=== PATIENT | male | born 1985 | race African-American/Black ===

== ENCOUNTER 2023-02-19 01:12 | Inpatient (IN) | payer BC ==
[2023-02-19 02:20] VITALS: BMI 26.9
[2023-02-19] MEDS ORDERED: BISMUTH SUBSALICYLATE 262 MG/15 ML BTL PO PRN (04:50)
[2023-02-19] MEDS ORDERED: BENZOCAINE/MENTHOL (CHLORASEPTIC ) LOZENGE MM PRN (04:50)
[2023-02-19] MEDS ORDERED: IBUPROFEN 400 MG TABLET (FP) PO PRN (04:50)
[2023-02-19] MEDS ORDERED: MAGNESIUM HYDROX 2400MG/30ML ORAL SUSPENSION 30 ML CUP PO PRN (04:50)
[2023-02-19] MEDS ORDERED: BENZONATATE 200 MG CAPSULE PO PRN (04:50)
[2023-02-19] MEDS ORDERED: POLYETHYLENE GLYCOL (HEALTHYLAX) 3350 17 GM PACKET PO PRN (04:50)
[2023-02-19] MEDS ORDERED: NALOXONE HCL (KLOXXADO) 8 MG SPRAY NS PRN (04:50)
[2023-02-19] MEDS ORDERED: guaiFENesin 600 MG TABLET.ER (FP) PO PRN (04:50)
[2023-02-19] MEDS ORDERED: NALOXONE HCL 0.4 MG/ML VIAL IM PRN (04:50)
[2023-02-19] MEDS ORDERED: LOPERAMIDE HCL 2 MG CAPSULE PO PRN (04:50)
[2023-02-19] MEDS ORDERED: ONDANSETRON *ODT* 4 MG TABLET SL PRN (04:50)
[2023-02-19] MEDS ORDERED: ACETAMINOPHEN 325 MG TABLET (FP) PO PRN (04:50)
[2023-02-19] MEDS ORDERED: PRENATAL VITAMINS W/ FOLIC ACID TABLET (FP) PO ONE (09:06)
[2023-02-19] MEDS: PRENATAL VITAMINS W/ FOLIC ACID TABLET (FP) PO SCH (09:25)
[2023-02-19] MEDS: ABACAVIR/DOLUTEGRAVIR/LAMIVUDI (TRIUMEQ) TABLET PO SCH (11:00)
[2023-02-19] MEDS: MELATONIN 5 MG TABLETS PO SCH (22:40)
[2023-02-19] MEDS: THIAMINE HCL 100 MG TABLET (FP) PO SCH (22:40)
[2023-02-20] MEDS: PRENATAL VITAMINS W/ FOLIC ACID TABLET (FP) PO SCH (10:30)
[2023-02-20] MEDS: ABACAVIR/DOLUTEGRAVIR/LAMIVUDI (TRIUMEQ) TABLET PO SCH (10:31)
[2023-02-20 10:39] LABS: POTASSIUM 3.9 mmol/L (3.5-5.1)
[2023-02-20 10:42] LABS: CALCIUM 9.1 mg/dL (8.5-10.1)
[2023-02-20 10:43] LABS: ALBUMIN 3.6 g/dl (3.4-5.0); BLOOD UREA NITROGEN 7.8 mg/dL (7-18)
[2023-02-20 10:46] LABS: CREATININE 1.1 mg/dL (0.55-1.3)
[2023-02-20 10:47] LABS: BILIRUBIN,TOTAL 0.8 mg/dL (0.2-1)
[2023-02-20 10:48] LABS: TOT PROT 7.9 g/dl (6.4-8.2)
[2023-02-20 10:52] LABS: HEMATOCRIT 42.5 % (35.4-49); HEMOGLOBIN 14.1 GM/dL (11.7-16.9); MCH 30.3 pg (25.7-33.7); MCHC 33.2 g/dl (32.0-35.9); MEAN CELL VOLUME 91.4 fl (80-96); MEAN PLT VOLUME 8.8 fl (7.5-11.1); PLATELET COUNT 357 10^3/uL (134-434); RBC 4.65 M/mm3 (4.00-5.60); RDW 15.5 % (11.9-15.9); WHITE BLOOD COUNT 5.3 K/mm3 (4.0-10.0)
[2023-02-20] MEDS: THIAMINE HCL 100 MG TABLET (FP) PO SCH (23:30)
[2023-02-20] MEDS: MELATONIN 5 MG TABLETS PO SCH (23:30)
[2023-02-21] MEDS: IBUPROFEN 600 MG TABLET (FP) PO PRN (06:56)
[2023-02-21] MEDS: PRENATAL VITAMINS W/ FOLIC ACID TABLET (FP) PO SCH (10:03)
[2023-02-21] MEDS: ABACAVIR/DOLUTEGRAVIR/LAMIVUDI (TRIUMEQ) TABLET PO SCH (10:03)
[2023-02-21] MEDS: THIAMINE HCL 100 MG TABLET (FP) PO SCH (21:46)
[2023-02-21] MEDS: MELATONIN 5 MG TABLETS PO SCH (21:46)
[2023-02-22] MEDS: IBUPROFEN 600 MG TABLET (FP) PO PRN ×2 (07:28→18:44)
[2023-02-22] MEDS: ABACAVIR/DOLUTEGRAVIR/LAMIVUDI (TRIUMEQ) TABLET PO SCH (09:39)
[2023-02-22] MEDS: PRENATAL VITAMINS W/ FOLIC ACID TABLET (FP) PO SCH (09:39)
[2023-02-22] MEDS: MELATONIN 5 MG TABLETS PO SCH (21:07)
[2023-02-22] MEDS: THIAMINE HCL 100 MG TABLET (FP) PO SCH (21:07)
[2023-02-23] MEDS: PRENATAL VITAMINS W/ FOLIC ACID TABLET (FP) PO SCH (11:09)
[2023-02-23] MEDS: ABACAVIR/DOLUTEGRAVIR/LAMIVUDI (TRIUMEQ) TABLET PO SCH (11:10)
[2023-02-23] MEDS: P-EPHED 60MG/TRIPROLIDI 2.5MG TABLET PO PRN (19:58)
[2023-02-23] MEDS: THIAMINE HCL 100 MG TABLET (FP) PO SCH (23:30)
[2023-02-23] MEDS: MELATONIN 5 MG TABLETS PO SCH (23:30)
[2023-02-24] MEDS: P-EPHED 60MG/TRIPROLIDI 2.5MG TABLET PO PRN ×2 (06:02→16:59)
[2023-02-24] MEDS: ABACAVIR/DOLUTEGRAVIR/LAMIVUDI (TRIUMEQ) TABLET PO SCH (10:12)
[2023-02-24] MEDS: PRENATAL VITAMINS W/ FOLIC ACID TABLET (FP) PO SCH (10:12)
[2023-02-24] MEDS: METHOCARBAMOL 500 MG TABLET PO PRN (19:05)
[2023-02-24] MEDS: IBUPROFEN 600 MG TABLET (FP) PO PRN (19:05)
[2023-02-24] MEDS: THIAMINE HCL 100 MG TABLET (FP) PO SCH (21:49)
[2023-02-24] MEDS: MELATONIN 5 MG TABLETS PO SCH (21:49)
[2023-02-25] MEDS: METHOCARBAMOL 500 MG TABLET PO PRN (01:05)
[2023-02-25] MEDS: hydrOXYzine PAMOATE 25 MG CAPSULE (FP) PO PRN (01:05)
[2023-02-25] MEDS: P-EPHED 60MG/TRIPROLIDI 2.5MG TABLET PO PRN ×2 (07:55→20:18)
[2023-02-25] MEDS: PRENATAL VITAMINS W/ FOLIC ACID TABLET (FP) PO SCH (09:48)
[2023-02-25] MEDS: ABACAVIR/DOLUTEGRAVIR/LAMIVUDI (TRIUMEQ) TABLET PO SCH (09:48)
[2023-02-25] MEDS: MAG HYDROX/AL HYDROX/SIMETH 30 ML UNIT-DOSE CUP PO PRN (17:28)
[2023-02-25] MEDS: IBUPROFEN 600 MG TABLET (FP) PO PRN (20:17)
[2023-02-25] MEDS: MELATONIN 5 MG TABLETS PO SCH (21:05)
[2023-02-25] MEDS: THIAMINE HCL 100 MG TABLET (FP) PO SCH (21:05)
[2023-02-26] MEDS: PRENATAL VITAMINS W/ FOLIC ACID TABLET (FP) PO SCH (10:31)
[2023-02-26] MEDS: ABACAVIR/DOLUTEGRAVIR/LAMIVUDI (TRIUMEQ) TABLET PO SCH (10:31)
[2023-02-26] MEDS: P-EPHED 60MG/TRIPROLIDI 2.5MG TABLET PO PRN ×2 (10:32→21:03)
[2023-02-26] MEDS: MAG HYDROX/AL HYDROX/SIMETH 30 ML UNIT-DOSE CUP PO PRN (16:24)
[2023-02-26] MEDS: MELATONIN 5 MG TABLETS PO SCH (21:03)
[2023-02-26] MEDS: THIAMINE HCL 100 MG TABLET (FP) PO SCH (21:04)
[2023-02-27] MEDS: IBUPROFEN 600 MG TABLET (FP) PO PRN (06:29)
[2023-02-27] MEDS: PRENATAL VITAMINS W/ FOLIC ACID TABLET (FP) PO SCH (09:56)
[2023-02-27] MEDS: ABACAVIR/DOLUTEGRAVIR/LAMIVUDI (TRIUMEQ) TABLET PO SCH (09:57)
[2023-02-27] MEDS: P-EPHED 60MG/TRIPROLIDI 2.5MG TABLET PO PRN (17:42)
[2023-02-27] MEDS: MELATONIN 5 MG TABLETS PO SCH (21:01)
[2023-02-27] MEDS: THIAMINE HCL 100 MG TABLET (FP) PO SCH (21:01)
[2023-02-28] MEDS: P-EPHED 60MG/TRIPROLIDI 2.5MG TABLET PO PRN ×2 (07:26→21:06)
[2023-02-28] MEDS: PRENATAL VITAMINS W/ FOLIC ACID TABLET (FP) PO SCH (10:32)
[2023-02-28] MEDS: ABACAVIR/DOLUTEGRAVIR/LAMIVUDI (TRIUMEQ) TABLET PO SCH (10:32)
[2023-02-28] MEDS: THIAMINE HCL 100 MG TABLET (FP) PO SCH (21:06)
[2023-02-28] MEDS: MELATONIN 5 MG TABLETS PO SCH (21:06)
[2023-03-01] MEDS: P-EPHED 60MG/TRIPROLIDI 2.5MG TABLET PO PRN ×2 (07:21→16:03)
[2023-03-01] MEDS: PRENATAL VITAMINS W/ FOLIC ACID TABLET (FP) PO SCH (10:04)
[2023-03-01] MEDS: ABACAVIR/DOLUTEGRAVIR/LAMIVUDI (TRIUMEQ) TABLET PO SCH (10:04)
[2023-03-01] MEDS: IBUPROFEN 600 MG TABLET (FP) PO PRN (10:54)
[2023-03-01] MEDS: THIAMINE HCL 100 MG TABLET (FP) PO SCH (21:00)
[2023-03-01] MEDS: MELATONIN 5 MG TABLETS PO SCH (21:00)
[2023-03-02] MEDS: ABACAVIR/DOLUTEGRAVIR/LAMIVUDI (TRIUMEQ) TABLET PO SCH (10:50)
[2023-03-02] MEDS: PRENATAL VITAMINS W/ FOLIC ACID TABLET (FP) PO SCH (10:50)
[2023-03-02] MEDS: P-EPHED 60MG/TRIPROLIDI 2.5MG TABLET PO PRN (14:45)
[2023-03-02] MEDS: MELATONIN 5 MG TABLETS PO SCH (21:07)
[2023-03-02] MEDS: THIAMINE HCL 100 MG TABLET (FP) PO SCH (21:07)
[2023-03-03] MEDS: P-EPHED 60MG/TRIPROLIDI 2.5MG TABLET PO PRN (07:22)
[2023-03-03] MEDS: ABACAVIR/DOLUTEGRAVIR/LAMIVUDI (TRIUMEQ) TABLET PO SCH (10:31)
[2023-03-03] MEDS: PRENATAL VITAMINS W/ FOLIC ACID TABLET (FP) PO SCH (10:31)
[2023-03-03] MEDS: METHOCARBAMOL 500 MG TABLET PO PRN (21:05)
[2023-03-03] MEDS: THIAMINE HCL 100 MG TABLET (FP) PO SCH (21:05)
[2023-03-03] MEDS: MELATONIN 5 MG TABLETS PO SCH (23:07)
[2023-03-04] MEDS: PRENATAL VITAMINS W/ FOLIC ACID TABLET (FP) PO SCH (10:16)
[2023-03-04] MEDS: ABACAVIR/DOLUTEGRAVIR/LAMIVUDI (TRIUMEQ) TABLET PO SCH (10:16)
[2023-03-04] MEDS: MELATONIN 5 MG TABLETS PO SCH (21:04)
[2023-03-04] MEDS: THIAMINE HCL 100 MG TABLET (FP) PO SCH (21:04)
[2023-03-04] MEDS: P-EPHED 60MG/TRIPROLIDI 2.5MG TABLET PO PRN (22:21)
[2023-03-05] MEDS: PRENATAL VITAMINS W/ FOLIC ACID TABLET (FP) PO SCH (10:11)
[2023-03-05] MEDS: ABACAVIR/DOLUTEGRAVIR/LAMIVUDI (TRIUMEQ) TABLET PO SCH (10:11)
[2023-03-05] MEDS: MAG HYDROX/AL HYDROX/SIMETH 30 ML UNIT-DOSE CUP PO PRN (14:50)
[2023-03-05] MEDS: P-EPHED 60MG/TRIPROLIDI 2.5MG TABLET PO PRN (21:18)
[2023-03-05] MEDS: MELATONIN 5 MG TABLETS PO SCH (21:18)
[2023-03-05] MEDS: THIAMINE HCL 100 MG TABLET (FP) PO SCH (21:18)
[2023-03-06] MEDS: P-EPHED 60MG/TRIPROLIDI 2.5MG TABLET PO PRN ×2 (07:52→21:05)
[2023-03-06] MEDS: PRENATAL VITAMINS W/ FOLIC ACID TABLET (FP) PO SCH (10:13)
[2023-03-06] MEDS: ABACAVIR/DOLUTEGRAVIR/LAMIVUDI (TRIUMEQ) TABLET PO SCH (10:13)
[2023-03-06] MEDS: THIAMINE HCL 100 MG TABLET (FP) PO SCH (21:04)
[2023-03-06] MEDS: MELATONIN 5 MG TABLETS PO SCH (21:04)
[2023-03-07 07:46] VITALS: RESP 18
[2023-03-07] MEDS: ABACAVIR/DOLUTEGRAVIR/LAMIVUDI (TRIUMEQ) TABLET PO SCH (10:28)
[2023-03-07] MEDS: PRENATAL VITAMINS W/ FOLIC ACID TABLET (FP) PO SCH (10:28)
[2023-03-07] MEDS: MELATONIN 5 MG TABLETS PO SCH (21:34)
[2023-03-07] MEDS: THIAMINE HCL 100 MG TABLET (FP) PO SCH (21:35)
[2023-03-07] MEDS: METHOCARBAMOL 500 MG TABLET PO PRN (21:36)
[2023-03-08] MEDS: PRENATAL VITAMINS W/ FOLIC ACID TABLET (FP) PO SCH (09:42)
[2023-03-08] MEDS: ABACAVIR/DOLUTEGRAVIR/LAMIVUDI (TRIUMEQ) TABLET PO SCH (09:42)
[2023-03-08] MEDS: MAG HYDROX/AL HYDROX/SIMETH 30 ML UNIT-DOSE CUP PO PRN (10:20)
[2023-03-08] MEDS: P-EPHED 60MG/TRIPROLIDI 2.5MG TABLET PO PRN (15:27)
[2023-03-08] MEDS: THIAMINE HCL 100 MG TABLET (FP) PO SCH (21:45)
[2023-03-08] MEDS: MELATONIN 5 MG TABLETS PO SCH (21:45)
[2023-03-08] MEDS: METHOCARBAMOL 500 MG TABLET PO PRN (21:47)
[2023-03-09] MEDS: ABACAVIR/DOLUTEGRAVIR/LAMIVUDI (TRIUMEQ) TABLET PO SCH (10:32)
[2023-03-09] MEDS: PRENATAL VITAMINS W/ FOLIC ACID TABLET (FP) PO SCH (10:32)
[2023-03-09] MEDS: MELATONIN 5 MG TABLETS PO SCH (21:08)
[2023-03-09] MEDS: METHOCARBAMOL 500 MG TABLET PO PRN (21:08)
[2023-03-09] MEDS: THIAMINE HCL 100 MG TABLET (FP) PO SCH (21:08)
[2023-03-09] MEDS: P-EPHED 60MG/TRIPROLIDI 2.5MG TABLET PO PRN (21:11)
[2023-03-10] MEDS: P-EPHED 60MG/TRIPROLIDI 2.5MG TABLET PO PRN ×2 (07:40→21:03)
[2023-03-10] MEDS: ABACAVIR/DOLUTEGRAVIR/LAMIVUDI (TRIUMEQ) TABLET PO SCH (10:16)
[2023-03-10] MEDS: MAG HYDROX/AL HYDROX/SIMETH 30 ML UNIT-DOSE CUP PO PRN (10:16)
[2023-03-10] MEDS: PRENATAL VITAMINS W/ FOLIC ACID TABLET (FP) PO SCH (10:16)
[2023-03-10] MEDS: MELATONIN 5 MG TABLETS PO SCH (21:01)
[2023-03-10] MEDS: THIAMINE HCL 100 MG TABLET (FP) PO SCH (21:01)
[2023-03-10] MEDS: METHOCARBAMOL 500 MG TABLET PO PRN (21:02)
[2023-03-11] MEDS ORDERED: COLLOIDAL OATMEAL 1 BAR EACH TP PRN (09:18)
[2023-03-11] MEDS: METHOCARBAMOL 500 MG TABLET PO PRN ×2 (10:07→21:15)
[2023-03-11] MEDS: ABACAVIR/DOLUTEGRAVIR/LAMIVUDI (TRIUMEQ) TABLET PO SCH (10:07)
[2023-03-11] MEDS: PRENATAL VITAMINS W/ FOLIC ACID TABLET (FP) PO SCH (10:07)
[2023-03-11] MEDS: THIAMINE HCL 100 MG TABLET (FP) PO SCH (21:13)
[2023-03-11] MEDS: MELATONIN 5 MG TABLETS PO SCH (21:13)
[2023-03-11] MEDS: P-EPHED 60MG/TRIPROLIDI 2.5MG TABLET PO PRN (21:15)
[2023-03-12] MEDS: P-EPHED 60MG/TRIPROLIDI 2.5MG TABLET PO PRN ×2 (06:38→22:35)
[2023-03-12] MEDS: PRENATAL VITAMINS W/ FOLIC ACID TABLET (FP) PO SCH (10:32)
[2023-03-12] MEDS: ABACAVIR/DOLUTEGRAVIR/LAMIVUDI (TRIUMEQ) TABLET PO SCH (10:32)
[2023-03-12] MEDS: MAG HYDROX/AL HYDROX/SIMETH 30 ML UNIT-DOSE CUP PO PRN (15:29)
[2023-03-12] MEDS: METHOCARBAMOL 500 MG TABLET PO PRN (21:03)
[2023-03-12] MEDS: MELATONIN 5 MG TABLETS PO SCH (21:03)
[2023-03-12] MEDS: THIAMINE HCL 100 MG TABLET (FP) PO SCH (21:03)
[2023-03-13] MEDS: P-EPHED 60MG/TRIPROLIDI 2.5MG TABLET PO PRN ×2 (07:19→21:01)
[2023-03-13] MEDS: ABACAVIR/DOLUTEGRAVIR/LAMIVUDI (TRIUMEQ) TABLET PO SCH (10:42)
[2023-03-13] MEDS: PRENATAL VITAMINS W/ FOLIC ACID TABLET (FP) PO SCH (10:42)
[2023-03-13] MEDS: MELATONIN 5 MG TABLETS PO SCH (21:01)
[2023-03-13] MEDS: METHOCARBAMOL 500 MG TABLET PO PRN (21:01)
[2023-03-13] MEDS: THIAMINE HCL 100 MG TABLET (FP) PO SCH (21:01)
[2023-03-14] MEDS: PRENATAL VITAMINS W/ FOLIC ACID TABLET (FP) PO SCH (10:04)
[2023-03-14] MEDS: ABACAVIR/DOLUTEGRAVIR/LAMIVUDI (TRIUMEQ) TABLET PO SCH (10:04)
[2023-03-14] MEDS: P-EPHED 60MG/TRIPROLIDI 2.5MG TABLET PO PRN ×2 (14:15→21:06)
[2023-03-14] MEDS: METHOCARBAMOL 500 MG TABLET PO PRN (21:06)
[2023-03-14] MEDS: THIAMINE HCL 100 MG TABLET (FP) PO SCH (21:06)
[2023-03-14] MEDS: MELATONIN 5 MG TABLETS PO SCH (21:06)
[2023-03-15] MEDS: hydrOXYzine PAMOATE 25 MG CAPSULE (FP) PO PRN ×2 (02:58→21:03)
[2023-03-15] MEDS: ABACAVIR/DOLUTEGRAVIR/LAMIVUDI (TRIUMEQ) TABLET PO SCH (10:59)
[2023-03-15] MEDS: PRENATAL VITAMINS W/ FOLIC ACID TABLET (FP) PO SCH (10:59)
[2023-03-15] MEDS: METHOCARBAMOL 500 MG TABLET PO PRN (21:03)
[2023-03-15] MEDS: P-EPHED 60MG/TRIPROLIDI 2.5MG TABLET PO PRN (21:03)
[2023-03-15] MEDS: MELATONIN 5 MG TABLETS PO SCH (21:03)
[2023-03-15] MEDS: THIAMINE HCL 100 MG TABLET (FP) PO SCH (21:04)
[2023-03-16 07:33] VITALS: BP 117/79; PULSE 71; TEMP 97.8
[2023-03-16] MEDS: ABACAVIR/DOLUTEGRAVIR/LAMIVUDI (TRIUMEQ) TABLET PO SCH (09:32)
[2023-03-16] MEDS: PRENATAL VITAMINS W/ FOLIC ACID TABLET (FP) PO SCH (09:32)
== END 2023-03-16 09:35 | disposition home or self-care (01) | DRG 772 ==
LOC: YASAS 01:12 → Y5N 08:56
PROVIDERS: ADMIT Allergy & Immunology; ATTEND Psychiatry & Neurology Pain Medicine
PROC: HZ42ZZZ Group Counseling for Substance Abuse Treatment, Cognitive-Behavioral (ICD-10-PCS; principal; 2023-02-19)
DX: F14.20 Cocaine dependence, uncomplicated (principal); F15.20 Other stimulant dependence, uncomplicated; F12.20 Cannabis dependence, uncomplicated; Z21 Asymptomatic human immunodeficiency virus [HIV] infection status; Z87.891 Personal history of nicotine dependence; Z86.19 Personal history of other infectious and parasitic diseases
CPT/HCPCS: 36415; 71045-TC-FY; 80053; 85027; 86593; 86780; 87635; 87811

== ENCOUNTER 2023-08-25 13:39 | Inpatient (IN) | payer BC ==
[2023-08-25 14:05] VITALS: BMI 28.7
[2023-08-25] MEDS ORDERED: IBUPROFEN 400 MG TABLET (FP) PO PRN (15:30)
[2023-08-25] MEDS ORDERED: BENZONATATE 200 MG CAPSULE PO PRN (15:30)
[2023-08-25] MEDS ORDERED: guaiFENesin 600 MG TABLET.ER (FP) PO PRN (15:30)
[2023-08-25] MEDS ORDERED: NALOXONE HCL 0.4 MG/ML VIAL IM PRN (15:30)
[2023-08-25] MEDS ORDERED: ACETAMINOPHEN 325 MG TABLET (FP) PO PRN (15:30)
[2023-08-25] MEDS ORDERED: NALOXONE HCL (KLOXXADO) 8 MG SPRAY NS PRN (15:30)
[2023-08-25] MEDS ORDERED: LOPERAMIDE HCL 2 MG CAPSULE PO PRN (15:30)
[2023-08-25] MEDS ORDERED: MAGNESIUM HYDROX 2400MG/30ML ORAL SUSPENSION 30 ML CUP PO PRN (15:30)
[2023-08-25] MEDS ORDERED: POLYETHYLENE GLYCOL (HEALTHYLAX) 3350 17 GM PACKET PO PRN (15:30)
[2023-08-25] MEDS ORDERED: MAG HYDROX/AL HYDROX/SIMETH 30 ML UNIT-DOSE CUP PO PRN (15:30)
[2023-08-25] MEDS ORDERED: BENZOCAINE/MENTHOL (CHLORASEPTIC ) LOZENGE MM PRN (15:30)
[2023-08-25] MEDS ORDERED: IBUPROFEN 600 MG TABLET (FP) PO PRN (15:30)
[2023-08-25] MEDS: PRENATAL VITAMINS W/ FOLIC ACID TABLET (FP) PO SCH (18:19)
[2023-08-25] MEDS: MELATONIN 5 MG TABLETS PO SCH (21:47)
[2023-08-25] MEDS: hydrOXYzine PAMOATE 25 MG CAPSULE (FP) PO PRN (21:48)
[2023-08-25] MEDS: THIAMINE HCL 100 MG TABLET (FP) PO SCH (21:48)
[2023-08-26 06:59] VITALS: BP 127/89; PULSE 70; RESP 18; TEMP 97.5
[2023-08-26] MEDS ORDERED: ABACAVIR/DOLUTEGRAVIR/LAMIVUDI (TRIUMEQ) TABLET PO SCH (10:00)
[2023-08-26] MEDS: ABACAVIR/DOLUTEGRAVIR/LAMIVUDI (TRIUMEQ) TABLET PO SCH (12:02)
[2023-08-26 12:14] LABS: CHLORIDE 108 mmol/L (98-107); POTASSIUM 4.3 mmol/L (3.5-5.1); SODIUM 143 mmol/L (136-145)
[2023-08-26 12:19] LABS: HEMATOCRIT 38.9 % (32.4-45.2); HEMOGLOBIN 13.1 GM/dL (10.7-15.3); MCH 30.2 pg (25.7-33.7); MCHC 33.6 g/dl (32.0-36.0); MEAN PLT VOLUME 8.8 fl (7.5-11.1); PLATELET COUNT 325 10^3/uL (134-434); RBC 4.32 M/mm3 (3.60-5.2); RDW 15.3 % (11.6-15.6); WHITE BLOOD COUNT 4.4 K/mm3 (4.0-10.0)
[2023-08-26 12:29] LABS: ALBUMIN 3.1 g/dl (3.4-5.0); GLUCOSE,RANDOM 88 mg/dL (74-106)
[2023-08-26 12:30] LABS: ANION GAP 7 mmol/L (4-13); BLOOD UREA NITROGEN 14.1 mg/dL (7-18); CO2 28 mmol/L (21-32)
[2023-08-26 12:31] LABS: SGPT/ALT 18 U/L (13-61)
[2023-08-26 12:32] LABS: BILIRUBIN,TOTAL 0.5 mg/dL (0.2-1)
[2023-08-26 12:33] LABS: CREATININE 0.8 mg/dL (0.55-1.3); SGOT/AST 10 U/L (15-37); TOT PROT 6.7 g/dl (6.4-8.2)
[2023-08-26 12:34] LABS: ALK PHOS 73 U/L (45-117)
[2023-08-26 13:10] LABS: SYPHILIS W/ RPR CONF REACTIVE (NONREACTIVE)
== END 2023-08-26 02:29 | disposition left against medical advice (07) | DRG 772 ==
LOC: EDSEX → YASAS 13:39 → Y3NR 16:07 → Y5N 16:41
PROVIDERS: ADMIT Allergy & Immunology; ATTEND Psychiatry & Neurology Pain Medicine
PROC: HZ42ZZZ Group Counseling for Substance Abuse Treatment, Cognitive-Behavioral (ICD-10-PCS; principal; 2023-08-25)
DX: F15.20 Other stimulant dependence, uncomplicated (principal); F12.20 Cannabis dependence, uncomplicated; F16.10 Hallucinogen abuse, uncomplicated; Z21 Asymptomatic human immunodeficiency virus [HIV] infection status; F91.8 Other conduct disorders; Z91.199 Patient's noncompliance with other medical treatment and regimen due to unspecified reason; Z86.11 Personal history of tuberculosis; Z87.891 Personal history of nicotine dependence; Z86.19 Personal history of other infectious and parasitic diseases
CPT/HCPCS: 36415; 80053; 80305; 80307; 85027; 86593; 86780; 86803; 87811